=== PATIENT | male | born 1995 ===

== ENCOUNTER 2019-11-12 10:29 | Inpatient (IN) | payer OTHER ==
[~2019-11-12] VITALS: Ht 195.6 cm; Wt 106.0 kg
[2019-11-12] VITALS (8 sets, daily range): BP systolic 108–134; BP diastolic 53–74; PULSE 77–93; TEMP 98–98.9
[2019-11-13] VITALS (12 sets, daily range): BP systolic 100–121; BP diastolic 41–74; PULSE 59–110; TEMP 98.1–100.2
--- NOTE | 2019-11-13 05:35 | NUR ---
Patient has rested well throughout the night. Dressing with lam wrap to left lower extremity. Patient able to feel sensation to left foot. Cap refill <3 seconds. Denies pain. Dressing CDI. Vitals within normal limits. IV antibiotics started this shift. No adverse reactions noted. Patient remains on bedrest. Espinoza catheter noted to drain clear, yellow urine. Will continue to moniotr patient.
--- NOTE | 2019-11-13 07:30 | NUR ---
Patient alert and oriented, answers questions appropriately. See assessment. LLE with dressing CDI. Sensation intact to LLE, able to wiggle toes. NWB to LLE. Espinoza catheter in place to dependent drainage, urine clear. No c/o of pain or discomfort.
--- NOTE | 2019-11-13 07:30 | NUR ---
Dr Valencia here to see patient.
--- NOTE | 2019-11-13 08:15 | NUR ---
To surgery at this time. Dr Valencia here to see patient prior to going to surgery. Consent signed. NPO since midnight.
--- NOTE | 2019-11-13 11:46 | NUR ---
Patient returns from surgery, assessment unchanged except for; LLE with ARIEL wrap, CAM boot in place. Pulses palpable to LLE, neuros intact, able to feel sensation and wiggle toes. Espinoza catheter removed during surgery. No c/o at this time.
--- NOTE | 2019-11-13 16:10 | NUR ---
JENNIFER met with the patient to complete initial intake. The patient lives alone in [place] and is a student. The patient states his father and sister are here staying with him at this time. The patient does not have a PCP locally but was open to going to Dr. Valencia for a follow up. The patient states he goes to [facility] for medical care in [facility]. The patient receives medication from [facility] at [facility]. Per nurse PT/OT is ordered. The patient does not have advanced directives in the EMR. The patient plans to return home at discharge. There are no additional needs at this time.
--- NOTE | 2019-11-13 19:45 | NUR ---
Notified by RT O2 saturation was 80% on room air while sleeping. O2@2L/NC with O2 saturation currently 100%
--- NOTE | 2019-11-13 20:00 | NUR ---
Report received. 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 Resting in bed talking on phone. Assessment complete. VS stable-temp 100.2 orally-instructed on use of deep breathing and IS. Used at this time. WIll recheck temp. Left lower extremity with lam bandage/splint/cam boot. Old drainage noted/marked. Denies pain/nausea/shortness of breath. Fresh ice pack applied to LLE-elevated on pillows. Denies needs. Will continue to monitor.
--- NOTE | 2019-11-13 23:45 | NUR ---
Weaned off O2 at this time. O2 saturation maintaining at 97%.
[2019-11-14 03:26] VITALS: BP 119/52; PULSE 98; TEMP 99.1
--- NOTE | 2019-11-14 05:00 | NUR ---
Slept most of this shift. Tolerating PO. Has not needed any pain medications. Left lower extremity has remained elevated with ice applied PRN. Drainage marked to lam. Denies needs.
[2019-11-14 07:50] VITALS: BP 93/52; PULSE 97; TEMP 100.7
--- NOTE | 2019-11-14 08:00 | NUR ---
Left leg dressing changed by orthopedics. Aquacell dressings x 4 applied. Patient denied need for pain medication. CMS intact. Cam boot reapplied to left lower leg.
[2019-11-14] MEDS ORDERED: ASPIRIN 32325 MG/TA1 PO (08:06)
[2019-11-14] MEDS ORDERED: DULCOLAX S10 MG/SUPP RC (08:07)
[2019-11-14] MEDS ORDERED: NORCO 325 MG-7.1 TAB PO (08:07)
[2019-11-14] MEDS ORDERED: CEPHALEXIN500 M1 PO (08:07)
[2019-11-14 12:08] VITALS: BP 115/47; PULSE 65; TEMP 98.5
--- NOTE | 2019-11-14 12:30 | NUR ---
Denied pain. Has been up in room with crutches. Prescriptions given. Home instructions reviewed with patient. Dismissed to home per w/c with family.
== END 2019-11-14 12:30 | disposition home or self-care (01) | DRG 494 ==
LOC: COL.ER 10:29 → SURG 11:21
PROVIDERS: ADMIT Orthopaedic Surgery
PROC: 2W3MX1Z Immobilization of Left Lower Extremity using Splint (ICD-10-PCS; 2019-11-12)
PROC: 0QSK04Z Reposition Left Fibula with Internal Fixation Device, Open Approach (ICD-10-PCS; 2019-11-12)
PROC: 0QSH04Z Reposition Left Tibia with Internal Fixation Device, Open Approach (ICD-10-PCS; principal; 2019-11-12 15:00)
DX: S82.252C Displaced comminuted fracture of shaft of left tibia, initial encounter for open fracture type IIIA, IIIB, or IIIC (principal); S82.452C Displaced comminuted fracture of shaft of left fibula, initial encounter for open fracture type IIIA, IIIB, or IIIC; X58.XXXA Exposure to other specified factors, initial encounter; Y93.9 Activity, unspecified
CPT/HCPCS: A4314; A9284; C1713; C1769; J0330; J0690; J0696; J1100; J1170; J1885; J2405; J2704; J3010; J3370; J7030; J7050; L4386